=== PATIENT | female | born 1990 | race Caucasian/White ===

== ENCOUNTER 2018-01-14 19:50 | Emergency (ER) | payer OTHER ==
[2018-01-14 19:56] VITALS: TEMP 98.8; O2SAT 100
[2018-01-14] MEDS ORDERED: Sodium Chloride 0.9% 1,000 ML IV STA (20:28)
--- NOTE | 2018-01-14 20:37 | ED PDOC ---
HPI: Seizure Time Seen by Provider: 01/14/18 20:04 Chief Complaint (Nursing): Seizure Chief Complaint (Provider): Seizure History Per: Patient History/Exam Limitations: no limitations Additional Complaint(s): Pt. on a bus to get home and had a witnessed seizure. States she remembers waking up, ? on the ground. EMS called and brought to the ER. Pt. did not have any issues or symptoms prior to getting on the bus. States she had a similar episode of shaking few weeks ago. Was seen in [facility]. She followed up with her pcp, film critic, and a neurologist. Was told she needs a MRI by neurology. Cardiology states her heart is possibly low and skipping beats. States in the past had several episodes when she would be doing something and then wake up again and unsure what happen in between. Pt. states her skipping beats stuff has been on going for a long time. Currently no chest pain, dyspnea, neck pain, numbness, tingles, abd pain, back pain, headache, dizziness. General weakness currently. Past Medical History Reviewed: Nursing Documentation, Vital Signs Vital Signs: Last Vital Signs Temp 98.8 F 01/14/18 19:53 Pulse 81 01/14/18 19:53 Resp 18 01/14/18 19:53 BP 121/50 L 01/14/18 19:53 Pulse Ox 100 01/14/18 21:03 - Medical History Other PMH: Seizures; abnormal skip beats HR; low blood pressure - Surgical History Surgical History: No Surg Hx - Family History Family History: States: Unknown Family Hx - Living Arrangements Living Arrangements: With Family - Allergies Allergies/Adverse Reactions: Allergies Allergy/AdvReac Type Severity Reaction Status Date / Time No Known Allergies Allergy Verified 01/14/18 19:53 Review of Systems ROS Statement: Except As Marked, All Systems Reviewed And Found Negative Constitutional: Positive for: Weakness Neurological: Positive for: Weakness, Seizures Physical Exam - Reviewed Nursing Documentation Reviewed: Yes Vital Signs Reviewed: Yes - Physical Exam Appears: Positive for: Non-toxic, No Acute Distress Head Exam: Positive for: NORMOCEPHALIC. Negative for: ATRAUMATIC (posterior scalp with abrasion and mild swelling), NORMAL INSPECTION Skin: Positive for: Normal Color, Warm, DRY Eye Exam: Positive for: EOMI, Normal appearance, PERRL ENT: Positive for: Normal ENT Inspection, Other (no tongue bite) Neck: Positive for: Normal, Painless ROM, Supple Cardiovascular/Chest: Positive for: Regular Rate, Rhythm Respiratory: Positive for: CNT, Normal Breath Sounds Gastrointestinal/Abdominal: Positive for: Normal Exam, Soft. Negative for: Tenderness Back: Positive for: Normal Inspection. Negative for: L CVA Tenderness, R CVA Tenderness Extremity: Positive for: Normal ROM. Negative for: Tenderness, Pedal Edema Neurologic/Psych: Positive for: Alert, extractor tender raw stock II-XII, Oriented. Negative for: Motor/Sensory Deficits, Cerebellar Tests, Aphasia, Facial Droop - Laboratory Results Result Diagrams: 01/14/18 20:58 01/14/18 20:58 Interpretation Of Abn Labs: 3.1 k - ECG ECG: Positive for: Interpreted By Me, Viewed By Me ECG Rhythm: Positive for: Normal QRS, Normal ST Segment, Sinus Rhythm O2 Sat by Pulse Oximetry: 100 Pulse Ox Interpretation: Normal - CT Scan/US ct Other Rad Studies (CT/US): Read By Radiologist Other Rad Interpretation: no acute - Progress ED Course And Treament: 2206: Pt. records from previous ER visit reviewed. Had PVCs and abnormal EKG at that time. Normal echo, ct head, and chest for pe. Pt. symptom free currently. AAOx3. Pain free. Tolerated po. Not likely seizure as lactate and cpk wnl. Fu with neurologist and pcp. Ambulated with no issues. Disposition - Clinical Impression Clinical Impression: Syncope, Hypokalemia - Patient ED Disposition Is Patient to be Admitted: No Counseled Patient/Family Regarding: Studies Performed, Diagnosis, Need For Followup - Disposition Referrals: [facility] [Outside] - 01/15/18 Disposition: Routine/Home Disposition Time: 22:43 Condition: STABLE Additional Instructions: Return if not better in 3 days. Instructions: Syncope (Fainting), Hypokalemia (DC) Forms: [employer] ([place]), [facility] ED School/Work Excuse
[2018-01-14 21:04] LABS: BASO % 0.6 % (0.0-2.0); EOS # 0.1 K/uL (0.0-0.7); EOS % 0.8 % (0.0-4.0); HEMOGLOBIN 13.4 g/dL (12.0-16.0); LYMPH # 2.9 K/uL (1.0-4.3); LYMPH % 41.7 % (20.0-40.0); MEAN CELL VOLUME 89.8 fl (81.0-99.0); MEAN CORPUSCULAR HEMOGLOBIN 30.2 pg (27.0-31.0); MEAN CORPUSCULAR HGB CONC 33.6 g/dL (33.0-37.0); MEAN PLATELET VOLUME 8.1 fl (7.2-11.7); MONO # 0.3 K/uL (0.0-0.8); MONO % 4.8 % (0.0-10.0); NEUT # 3.6 K/uL (1.8-7.0); NEUT % 52.1 % (50.0-75.0); RBC 4.45 Mil/uL (3.80-5.20); RED CELL DISTRIBUTION WIDTH 12.8 % (11.5-14.5)
[2018-01-14 21:12] LABS: ALB/GLOB RATIO 1.5 (1.0-2.1); ALBUMIN 4.4 g/dL (3.5-5.0); ALT/SGPT 46 U/L (9-52); AST/SGOT 69 U/L (14-36); BLOOD UREA NITROGEN 15 mg/dl (7-17); CALCIUM 9.3 mg/dL (8.4-10.2); GFR NON-AFRICAN AMERICAN > 60
[2018-01-14] MEDS ORDERED: Potassium Chloride 20 mEq ER Tab PO STA (22:05)
[2018-01-14 22:11] LABS: VENOUS BLOOD GAS BASE EXCESS -0.8 mmol/L (0.0-2.0); VENOUS BLOOD GAS PCO2 27 mmHg (40-60); VENOUS BLOOD GAS PO2 24 mm/Hg (30-55)
[2018-01-14 23:40] VITALS: BP 118/83; PULSE 80; RESP 15
--- NOTE | 2018-01-15 07:03 | CARD ---
APPROVED REPORT Date of service: 01/14/2018 EKG Measurement Heart [id number] <Conclusion> Normal sinus rhythm with sinus arrhythmia Rightward axis Borderline ECG
--- NOTE | 2018-01-15 08:38 | CT ---
Date of service: 01/14/2018 PROCEDURE: CT HEAD WITHOUT CONTRAST. HISTORY: headache COMPARISON: None available. TECHNIQUE: Axial computed tomography images were obtained through the head/brain without intravenous contrast. Radiation dose: Total exam DLP = 737.04 mGy-cm. This CT exam was performed using one or more of the following dose reduction techniques: Automated exposure control, adjustment of the mA and/or kV according to patient size, and/or use of iterative reconstruction technique. FINDINGS: HEMORRHAGE: No intracranial hemorrhage. BRAIN: Normal peralta-white matter differentiation and density are appreciated throughout the cerebrum and cerebellum with the brainstem appearing unremarkable as well. There is no mass effect. There is no suspicious extra-axial fluid collection and the midline brain anatomy appears diffusely unremarkable. VENTRICLES: Unremarkable. No hydrocephalus. CALVARIUM: Unremarkable. PARANASAL SINUSES: Unremarkable as visualized. No significant inflammatory changes. MASTOID AIR CELLS: Unremarkable as visualized. No inflammatory changes. OTHER FINDINGS: None. IMPRESSION: Normal CT of the Head. Concordant preliminary report from [facility], 01/14/2018.
== END 2018-01-14 23:15 | disposition home or self-care (01) ==
LOC: H.ER 19:50
DX: R55 Syncope and collapse (principal); E87.6 Hypokalemia
CPT/HCPCS: 70450; 80053; 80320; 81025; 82550; 82803; 82948; 83735; 84100; 84484; 85025; 93005; 96360; 99285; J7030